=== PATIENT | female | born 1950 | race African-American/Black ===

== ENCOUNTER → 2016-09-05 | Outpatient (CLI) | payer OTHER | LOC: RAD 09-03 13:44 → NUC 01:14 | DX: Z12.31 Encounter for screening mammogram for malignant neoplasm of breast (principal); N63 Unspecified lump in breast; N95.9 Unspecified menopausal and perimenopausal disorder; N91.2 Amenorrhea, unspecified; M85.80 Other specified disorders of bone density and structure, unspecified site ==

== ENCOUNTER → 2016-10-18 | Outpatient (CLI) | payer OTHER | LOC: RAD 09-19 04:04 | DX: R92.2 Inconclusive mammogram (principal) ==

== ENCOUNTER → 2017-11-17 | Outpatient (CLI) | payer OTHER | LOC: RAD 10-29 00:27 | DX: Z12.31 Encounter for screening mammogram for malignant neoplasm of breast (principal) ==

== ENCOUNTER 2018-05-02 14:47 | Emergency (ER) | payer OTHER ==
[~2018-05-02] VITALS: Ht 172.7 cm; Wt 89.1 kg
[2018-05-02] MEDS ORDERED: PRINIVIL10 MG PO (18:22)
[2018-05-02] MEDS ORDERED: DALFAMPRIDINE E10 MG PO (18:23)
[2018-05-02] MEDS ORDERED: TIROSINT100 MCG PO (18:23)
[2018-05-02] MEDS ORDERED: PAXIL10 MG PO (18:24)
[2018-05-02] MEDS ORDERED: AVONEX ADMIN P30 MCG IM (18:24)
[2018-05-02] MEDS ORDERED: TRAMADOL 50 MG50 MG PO (18:49)
[2018-05-02] MEDS ORDERED: LIORESAL 10 MG10 MG PO (18:49)
[2018-05-02 19:14] VITALS: BP 145/77
== END 2018-05-02 19:14 | disposition home or self-care (01) ==
LOC: ER 14:47
DX: M79.18 Myalgia, other site (principal); M79.622 Pain in left upper arm

== ENCOUNTER → 2019-03-08 | Outpatient (CLI) | payer OTHER ==
[~2019-03-08] MED LIST: AVONEX ADMIN P30 MCG IM; DALFAMPRIDINE E10 MG PO; LIORESAL 10 MG10 MG PO; PAXIL10 MG PO; PRINIVIL10 MG PO; TIROSINT100 MCG PO; TRAMADOL 50 MG50 MG PO
== END ==
LOC: RAD 01:39
DX: Z12.31 Encounter for screening mammogram for malignant neoplasm of breast (principal)

== ENCOUNTER → 2020-09-15 | Outpatient (CLI) | payer OTHER | LOC: RAD 12:33 | PROVIDERS: ATTEND Family Medicine | DX: M25.871 Other specified joint disorders, right ankle and foot (principal); M25.571 Pain in right ankle and joints of right foot ==